=== PATIENT | female | born 1980 | race Caucasian/White ===

== ENCOUNTER 2018-04-25 14:48 | Day surgery (SDC) | payer BC ==
--- NOTE | 2018-04-25 15:43 | PDOC.LDHP ---
Labor and Delivery H&P Chief complaint: other (urinary frequency) HPI: 37 yo @ 35.6wks presents with urinary frequency and pelvic pressure for the past few days. She endorse chills off and on as well. She had several episodes of vomiting and diarrhea last week that resolved on Wednesday. Denies dysuria, flank pain, LOF, vaginal bleeding, discharge. States that she has taken tramadol in the past for round ligament pain and migraines. She has tried tylenol 1000mg q4-6 hours prn which she says doesn't help. Current gestational age (weeks): 35 (35.6) Due date: 05/24/18 Grav: 3 Para: 2 (2001) OB History Details: 05/2011 vaginal 12/2005 vaginal Current complications: none Abnormal US findings: No (male fetus) Past Medical History: none Current medications: none Previous surgical history: none Allergies/Adverse Reactions: Allergies Allergy/AdvReac Type Severity Reaction Status Date / Time No Known Allergies Allergy Verified 06/10/13 08:44 Social history: none - Physical Exam Vital signs reviewed and normal: yes General: NAD, resting Heart: RRR Lungs: CTAB Abdomen: gravid Extremeties: no edema FHT: category 1 - Vaginal Exam cm dilated: 0 - OB Labs Blood type: A RH: positive HIV: negative RPR: negative - Plan -: 37 yo @35.6wks with urinary frequency, admitted to obs for suspected UTI vs round ligament pain. 1.)sIUP 2.)suspected UTI vs round ligament pain -UA with micro -Tramadol X1 for pain -Monitor on NST - Review of Systems General: reports: fever/chills. denies: weight/appetite/sleep changes ENT: denies: nasal congestion, rhinorrhea Respiratory: denies: cough, congestion Cardiovascular: denies: chest pain, palpitation Gastrointestinal: denies: nausea, vomiting, diarrhea Genitourinary: reports: other (urinary frequency and pelvic pressure). denies: dysuria Skin: denies: rashes, lesions Musculoskeletal: reports: pain (round ligament) Neurological: denies: numbness, syncope Psychological: denies: anxiety, depression
[2018-04-25 16:30] LABS: Bilirubin Negative (Negative); Blood, Urine Negative (Negative); Clarity CLEAR (Clear); Glucose, Urine (Dipstick) Negative (Negative); Leukocyte Negative (Negative); Nitrite Negative (Negative); Protein, Urine (Dipstick) Negative (Neg-Trace); Specific Gravity, Urine 1.022 (1.002-1.036)
[2018-04-25 16:34] LABS: RBC/HPF 0-3 HPF (0-3); WBC/HPF 0-3 HPF (0-3)
[2018-04-25 16:38] LABS: Pathc Cast-AUWi Flag 4.79 (0-2.49)
[2018-04-25] MEDS ORDERED: traMADol HCl 50 MG TAB PO SCH (16:45)
[2018-04-25 16:49] LABS: Bacteria/HPF Rare-Few HPF (None Seen); Hyaline Casts/LPF NONE SEEN LPF (0-3 Hyaline); Manual Microscopic Reviewed? No Path Casts Seen
[2018-04-25 16:57] VITALS: BMI 30.8
== END 2018-04-25 17:14 | disposition home or self-care (01) ==
LOC: L&D/OP 14:48
PROVIDERS: ATTEND Obstetrics & Gynecology
DX: O99.89 Other specified diseases and conditions complicating pregnancy, childbirth and the puerperium (principal); R35.0 Frequency of micturition; Z3A.35 35 weeks gestation of pregnancy
CPT/HCPCS: 51701; 81001; 99283

== ENCOUNTER 2018-04-26 09:18 | Inpatient (IN) | payer BC ==
[2018-04-26 09:41] VITALS: BMI 29.2
--- NOTE | 2018-04-26 10:36 | PDOC.FPROB ---
FMR OB H&P: HPI - History of Present Illness Chief Complaint: suprapubic and right flank pain History of Present Illness: 37 yo at 36.0 wk by LMP/11.1 wk US. Presents with complaint of severe suprapubic pain that radiates to her right lower quadrant and right flank. States her symptoms started on 04/18 with symptoms consistent with mild gastroenteritis. State her symptoms improved over the next 2 days but she noticed a 1-2 small specks of blood in her urine on 04/20. Reports increased urgency without dysuria throughout the next 4 days. She was seen yesterday on L& D with a CC of suprapubic pressure and urgency. UA at that time was remarkable for ketones, squamous cells, and rare bacteria. She was given tramadol and d/c home and had follow up scheduled on . She states the tramadol resolved her pain. At approximately 0400 on 04/26, her pain returned and became more severe. She states she took one of her 's norco and a dose of Azo which did not resolve her pain and prompted her to come to L&D for evaluation. She denies CP, SOB, N/V, edema, RUQ pain, fevers/chills, and dysuria. Reports movement. Denies vaginal bleeding or discharge. Primary Care Physician: Dr. Watkins FMR OB H&P: Current - Care : 3 Para: 2 Gestational age: 36.0 Due date: 05/24/18 Dating Criteria: LMP c/w 11.1 wk US Course/Complications: none - OB Labs Blood type: A RH: positive Antibody Screen: negative HIV: negative RPR: negative HepBsAg: negative Rubella: immune Quad screen: negative ([id number] performed and negative) Urine drug screen: not done Gonorrhea: negative Chlamydia: negative Pap Smear: negative with negative HPV, hx of LISL in 2014 1 hour gtt: 135 GBS: unknown H&H: 11.3/33.3 on 04/04/18 Platelets: 131 on 04/04/18 - First Trimester Ultrasound First trimester: Dates = size at 11.1 wk and 13.3 wk - Anatomy Survey Anatomy survey: Male fetus, no abnormalities or funneling noted, fundal placenta, FMR OB H&P: History - Past Medical History PMH: LSIL in 2015 resolved on most recent Pap this - OB History OB History: PPH with second that did not require transfusion - 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: LSIL- resolved - Surgical History Sx History: None - Social History Social History: Noncontributory - Family History Family History: Denies FHx kidney stones FMR OB H&P: Medications - Current Home Medications: Medication Instructions Recorded Confirmed Type Vit No.129/Iron/Folic 1 tab PO DAILY 04/26/18 04/26/18 History [ One Daily Tablet] Allergies/Adverse Reactions: Allergies Allergy/AdvReac Type Severity Reaction Status Date / Time ondansetron [From Zofran] Allergy Severe Swollen Verified 04/26/18 11:45 Lips FMR OB H&P: ROS - Review of Systems General: denies: fever/chills, weight/appetite/sleep changes Eyes: denies: eye pain, vision changes, scotomas ENT: denies: nasal congestion, rhinorrhea Cardiovascular: denies: chest pain, palpitation Respiratory: denies: cough, congestion, shortness of breath Gastrointestinal: reports: abdominal pain, cramping. denies: nausea, vomiting, diarrhea, constipation, bright red blood Genitourinary (Female): reports: hesitancy, other (increased frequency). denies : incontinence, dysuria, vaginal discharge, contractions Musculoskeletal: denies: pain, tenderness Neurologic: denies: numbness, syncope, seizures Integumentary: denies: itching, lesions FMR OB H&P: Vital Signs - Maternal Vital signs: Vital Signs (12 hours) Temp Pulse Resp BP 04/26/18 09:38 98.2 F 100 18 133/76 Weight Weight 84.822 kg - Heart Tones Baseline: 140 Variability: moderate Acceleration: present Deceleration: absent [place] contractions every: none FMR OB H&P: Physical Exam - Physical Exam General: awake, alert and oriented, other (appears in pain) HEENT: normocephalic and atraumatic, no scleral icterus Heart: RRR, normal S1/S2, no murmurs/rubs/gallops General: CTAB, no respiratory distress Abdomen: soft, gravid, bowel sound present, no masses Deviation from normal: TTP suprapubic region, right sided CVA tenderness Musculoskeletal: normal gait and station, FROM in all four extremities Neurological: cranial nerves II through XII intact, sensation to pain,touch and proprioception grossly normal Skin: no rash, good tugor - Pelvic Exam SVE: deferred FMR OB H&P: Results - Labs Lab results: Laboratory Results - last 24 hr 04/26/18 04/26/18 04/26/18 10:32 10:32 10:55 WBC 12.7 H RBC 3.69 L Hgb 12.0 Hct 34.5 L MCV 93.5 MCH 32.4 H MCHC 34.6 RDW 12.1 Plt Count 115 L MPV 9.3 Neutrophils % 76.4 H Lymphocytes % 15.0 L Monocytes % 7.7 Eosinophils % 0.6 Basophils % 0.3 Neutrophils # 9.7 H Lymphocytes # 1.9 Monocytes # 1.0 H Eosinophils # 0.1 Basophils # 0.0 Plt Morphology Comment Appears Decreased L RBC Morph Comment Normal Sodium 135 L Potassium 3.4 L Chloride 106 Carbon Dioxide 19 L Anion Gap 13 BUN 6 L Creatinine 0.64 Estimated GFR (MDRD) Greater than 90 Glucose 94 Calcium 8.5 Total Bilirubin 0.4 AST 25 ALT 29 Alkaline Phosphatase 124 Serum Total Protein 6.2 Albumin 3.3 L Globulin 2.9 Albumin/Globulin Ratio 1.1 L Urine Color Dark Yellow Urine Clarity CLEAR Urine pH 6.5 Ur Specific [place] 1.017 Urine Protein 100 H Urine Glucose (UA) Negative Urine Ketones Trace H Urine Blood Trace H Urine Nitrite Positive H Urine Bilirubin Negative Urine Urobilinogen 1.0 Ur Leukocyte Esterase Small H Urine RBC 7-10 H Urine WBC 0-3 Ur Squamous Epith Cells 4-6 H Urine Bacteria 1+ H Hyaline Casts 4-6 HYALINE CAST H - Imaging Imaging: Renal US: Moderate to severe hydronephrosis with surrounding perinephric fluid of unknown etiology. FMR OB H&P: A/P - Problem List (1) Nephrolithiasis Current Visit: Yes Status: Acute Assessment and Plan: Differential includes nephrolithiasis, hydronephrosis from uterine compression, pyelonephritis, musculoskeletal pains CBC and CMP unremarkable. UA positive for nitrates, LE, and RBC 7-10/hpf with squamous cells present. US shows right sided moderate to severe hydronephrosis - IM Morphine for pain management - Repeat UA collected via straight cath to evaluate if RBCs, nitrates, and LE resolves. (2) Hydronephrosis Current Visit: Yes Status: Acute Code(s): N13.30 - UNSPECIFIED HYDRONEPHROSIS Qualifiers: Hydronephrosis type: unspecified Qualified Code(s): N13.30 - Unspecified hydronephrosis Assessment and Plan: Right sided, see plan for nephrolithiasis (3) Current Visit: Yes Status: Acute Qualifiers: Weeks of gestation: 36 weeks Qualified Code(s): Z3A.36 - 36 weeks gestation of Assessment and Plan: appears stable. continue PNV. Will discuss giving steroids with PCP if pain unable to be controlled and need for delivery in the next 2-3 days. (4) Thrombocytopenia affecting Current Visit: Yes Status: Acute Code(s): O99.119 - OTH DIS OF BLD/BLD-FORM ORG/IMMUN MECHNSM COMP PREG,UNSP TRI; D69.6 - THROMBOCYTOPENIA, UNSPECIFIED Assessment and Plan: platelets down to 115 today. Disposition: Dispo pending repeat UA. Discussion: Date/Time: 04/26/18 1027 This H&P was discussed with Dr. Avalos who agree with the above documentation and plan. Pt is a [address] Watkins presenting with severe rt sided flank and side pain moderately controlled with 12mg morphine, 100mcg fentanyl. 15mg hydrcodone PO. sve 10/19/3 moderately soft. Working dx is kidney stone and is receive generous hydration, iv meds transitioning to po for pain control, 1gm rocephin and betamethasone for lung maturity in the event delivery is needed. Some of pt symptoms consistent with uti, cath ua sig only for rbc and nitrites-no bacteria seen. However given the whole picture I have treated with rocephin. I have discussed pt with Dr Watkins. Will focus on pain control. No evidence suggesting any emergent problems. Will admit to observation for pain control and serial exams. Will consult urology if unable to get satisfactory pain control.
[2018-04-26] MEDS ORDERED: Morphine 4 MG/ML VIAL IM SCH (10:45)
[2018-04-26] MEDS ORDERED: Morphine 4 MG/ML VIAL SLOW IVP SCH (10:45)
[2018-04-26 11:05] LABS: #Eosinphils 0.1 thou/uL (0.0-0.7); #Lymphocytes 1.9 thou/uL (1.20-3.40); #Neutrophils 9.7 thou/uL (1.40-6.50); %Basophils 0.3 % (0.0-1.0); %Eosinophils 0.6 % (0.0-10.0); %Monocytes 7.7 % (0.0-10.0); %Neutrophils 76.4 % (42.0-75.0); Mean Corpuscular HGB CONC 34.6 g/dL (32.0-36.0); Mean Corpuscular Hemoglobin 32.4 pg (27.0-31.0); Mean Corpuscular Volume 93.5 fL (78.0-98.0); Mean Platelet Volume 9.3 fL (7.4-10.4); PLT Morphology Comment Appears Decreased; Platelet Count 115 thou/uL (130-400); RBC Distribution Width 12.1 % (11.5-14.5); RBC Morphology Normal; Red Blood Cell (RBC) Count 3.69 mill/uL (4.20-5.40); White Blood Cell (WBC) Count 12.7 thou/uL (4.8-10.8)
[2018-04-26 11:07] LABS: Bilirubin Negative (Negative); Blood, Urine Trace (Negative); Clarity CLEAR (Clear); Glucose, Urine (Dipstick) Negative (Negative); Leukocyte Small (Negative); Nitrite Positive (Negative); Protein, Urine (Dipstick) 100 mg/dL (Neg-Trace); Specific Gravity, Urine 1.017 (1.002-1.036); pH, Urine 6.5 (5.0-9.0)
[2018-04-26 11:09] LABS: Bacteria/HPF 1+ HPF (None Seen); Hyaline Casts/LPF 4-6 HYALINE CAST LPF (0-3 Hyaline); Pathc Cast-AUWi Flag 1.74 (0-2.49); WBC/HPF 0-3 HPF (0-3)
[2018-04-26] MEDS ORDERED: Morphine 4 MG/ML VIAL SLOW IVP ONE (11:14)
[2018-04-26] MEDS: Lactated Ringer's 1,000 ML IV SCH ×4 (11:25→19:30)
[2018-04-26] MEDS ORDERED: Ondansetron HCl/PF 4 MG/2 ML Vial IVP SCH (11:30)
[2018-04-26 11:36] LABS: ALT (SGPT) 29 U/L (8-55); AST (SGOT) 25 U/L (5-34); Albumin 3.3 g/dL (3.5-5.0); Alkaline Phosphatase 124 U/L (40-150); Anion Gap 13 mmol/L (10-20); BUN (Urea Nitrogen) 6 mg/dL (7.0-18.7); Bilirubin, Total 0.4 mg/dL (0.2-1.2); Calc. Creatinine Clearance 164 mL/min (70-130); Calcium 8.5 mg/dL (7.8-10.44); Carbon Dioxide 19 mmol/L (22-29); Chloride 106 mmol/L (98-107); Estimated GFR-MDRD Greater than 90; Globulin 2.9 g/dL (2.4-3.5); Glucose 94 mg/dL (70-105); Potassium 3.4 mmol/L (3.5-5.1); Protein, Total 6.2 g/dL (6.0-8.3); Sodium 135 mmol/L (136-145)
[2018-04-26] MEDS ORDERED: Promethazine HCl 25 MG/ML VIAL IM/IV SCH (11:45)
--- NOTE | 2018-04-26 11:59 | ULT ---
BILATERAL RENAL ULTRASOUND: CLINICAL HISTORY: Abdominal pain. FINDINGS: There is moderate to severe right side hydronephrosis with perinephric fluid. There is no hydronephro sis of the left kidney. Urinary bladder not visualized as the patient voided prior to imaging. IMPRESSION: Moderate to severe right hydronephrosis of indeterminate etiology. LIMITED ABDOMINAL ULTRASOUND: CLINICAL HISTORY: Abdominal pain. FINDINGS: Limited lower abdominal sonographic imaging at the right lower quadrant to evaluate region of appendi x was performed. A discrete appendix is not visualized. No ascites in right lower quadrant. IMPRESSION: Appendix is not visualized for comment. Appendicitis is therefore not excluded on the basis of this e xam. There is no ascites in right lower quadrant. POS: JOURDAN
[2018-04-26 12:01] LABS: ALT (SGPT) 31 U/L (8-55); AST (SGOT) 26 U/L (5-34); Albumin 3.4 g/dL (3.5-5.0); Alkaline Phosphatase 126 U/L (40-150); Anion Gap 14 mmol/L (10-20); BUN (Urea Nitrogen) 7 mg/dL (7.0-18.7); Bilirubin, Total 0.4 mg/dL (0.2-1.2); Calc. Creatinine Clearance 167 mL/min (70-130); Calcium 8.4 mg/dL (7.8-10.44); Carbon Dioxide 18 mmol/L (22-29); Chloride 108 mmol/L (98-107); Estimated GFR-MDRD Greater than 90; Globulin 2.5 g/dL (2.4-3.5); Glucose 96 mg/dL (70-105); Potassium 3.7 mmol/L (3.5-5.1); Protein, Total 5.9 g/dL (6.0-8.3); Sodium 136 mmol/L (136-145)
[2018-04-26] MEDS ORDERED: Fentanyl 100 MCG/2 ML VIAL SLOW IVP SCH (12:15)
[2018-04-26 12:36] LABS: Bilirubin Negative (Negative); Blood, Urine Trace (Negative); Clarity CLEAR (Clear); Glucose, Urine (Dipstick) Negative (Negative); Leukocyte Trace (Negative); Nitrite Positive (Negative); Protein, Urine (Dipstick) 30 mg/dL (Neg-Trace); Specific Gravity, Urine 1.018 (1.002-1.036); pH, Urine 6.5 (5.0-9.0)
[2018-04-26 12:39] LABS: Bacteria/HPF None Seen HPF (None Seen); Hyaline Casts/LPF 0-3 HYALINE CAST LPF (0-3 Hyaline); Pathc Cast-AUWi Flag 0.87 (0-2.49); Squamous Epithelial 0-3 HPF (0-3); WBC/HPF 0-3 HPF (0-3)
[2018-04-26] MEDS ORDERED: HYDROcodone/Acetaminophen 7.5/325 mg Tablet PO PRN (12:51)
[2018-04-26] MEDS ORDERED: Lactated Ringer's 1,000 ML IV SCH (13:00)
[2018-04-26] MEDS: cefTRIAXone\\ROCEPHIN 1 GM VIAL IM SCH (14:00)
[2018-04-26] MEDS ORDERED: Betamet Acet/Betamet Na Ph 30 MG/5 ML VIAL ONE (14:20)
[2018-04-26] MEDS: Betamet Acet/Betamet Na Ph 30 MG/5 ML VIAL IM SCH (14:25)
[2018-04-26] MEDS: HYDROcodone/Acetaminophen 7.5/325 mg Tablet PO PRN ×3 (17:22→22:59)
[2018-04-26] MEDS ORDERED: HYDROcodone/Acetaminophen 10/325 mg Tablet PO SCH (23:45)
--- NOTE | 2018-04-27 07:46 | PDOC.LDPN ---
Labor & Delivery Progress Note - Subjective Subjective: other (Pain at about 20% from most severe yesterday. Got some rest. Baby is moving.) - Objective Vital signs reviewed and normal: yes General: NAD Uterine fundus: non tender FHT: category 1 [place] contractions every: no [id number] - Assessment (1) Hydronephrosis Code(s): N13.30 - UNSPECIFIED HYDRONEPHROSIS Current Visit: Yes Status: Acute Qualifiers: Hydronephrosis type: unspecified Qualified Code(s): N13.30 - Unspecified hydronephrosis Plan: other (Pain management. IVF's. Repeat right renal ultrasound today for comparison. steroid dose number 2 this afternoon in case delivery indicated...)
[2018-04-27] MEDS: HYDROcodone/Acetaminophen 5/325 mg Tablet PO PRN ×4 (07:54→18:48)
--- NOTE | 2018-04-27 08:54 | ULT ---
BILATERAL RENAL ULTRASOUND: Date: 04/27/18 INDICATION: Right flank pain. FINDINGS: There is moderate to severe right hydronephrosis. The left kidney appears unremarkable. The bladder is contracted and not evaluated. IMPRESSION: Moderate to severe right hydronephrosis. Etiology is not apparent on this exam. POS: JOURDAN
[2018-04-27] MEDS ORDERED: Tamsulosin HCl 0.4 MG CAP PO SCH (09:00)
[2018-04-27] MEDS: Lactated Ringer's 1,000 ML IV SCH (09:49)
[2018-04-27] MEDS ORDERED: Mag-Al 1200 mg/1200 mg/30 ML UDCUP PO PRN ×2 (13:01→20:10)
[2018-04-27] MEDS: Sodium Chloride 0.9% 1,000 ML IV SCH ×2 (15:15→23:05)
[2018-04-27] MEDS: cefTRIAXone\\ROCEPHIN 1 GM VIAL IM SCH (15:23)
[2018-04-27] MEDS: Betamet Acet/Betamet Na Ph 30 MG/5 ML VIAL IM SCH (15:28)
--- NOTE | 2018-04-27 18:37 | CON ---
DATE OF CONSULTATION: 04/27/2018 HISTORY OF PRESENT ILLNESS: This is a 37-year-old white female who is well into her last trimester o f with her third child. She came in, I believe yesterday with right lower quadrant pain an d right flank pain and microscopic hematuria. She has no prior history of stones. Her pain is actua lly improved, though she did require parental narcotics yesterday and some oral narcotics today. She has not had any fever or chills. Her urinalysis did show some nitrite positivity. White count was not significantly elevated. She has had nothing to suggest an infection. She has had increasing uri nary frequency and urgency, but no dysuria. She had some nausea and vomiting earlier in the week, bu t it was not associated with pain. She has not had nausea or vomiting since she has been here. She had no prior history of stones that she knows of. Ultrasound has been done twice and it shows right hydronephrosis and fairly prominent. No obvious stone, but probably the stone is distal. She had ur ine cultures done and did receive some Rocephin. She is currently as mentioned feeling better. PAST SURGICAL HISTORY: Negative. MEDICAL HISTORY: Negative. ALLERGIES: She may have an allergy to ZOFRAN. MEDICATIONS: She does not take any normal prescription medications. I have reviewed her ultrasound and talked to her where she is feeling better at this time, I do not t hink that she should have any intervention in terms of a stent or nephrostomy tube should she develop signs or symptoms of infection, pain that she cannot control or persistent nausea and vomiting or sh ould there anything developed in terms of labor, then a nephrostomy tube or stent could be do ne. I think at this point in her may be easier just to have a nephrostomy tube placed if r adiology could do that. It would not require a general anesthetic and would not be anywhere near the gravid uterus; however, this could not be done easily by Radiology. I think we still could with ult rasound guidance pass ureteral stent from below if it is necessary. I think that this is unlikely to be necessary. I talked with her and her about this indicating how most commonly stones will pass and that most likely she does have a stone. The fact that she initially presented with a lot o f frequency and urgency and voiding just small amounts and where it looks like she probably does not have an infection as a cause of this that it may be that it is a distal stone just irritating the int ramural ureter and that is a common finding to curb further stones' pass. I will follow along with flako thurman over the next day or two while she is here and intervene only if her condition changes.
[2018-04-27 19:45] VITALS: TEMP 98.5
[2018-04-27] MEDS ORDERED: Sodium Chloride 0.9% 1,000 ML IV SCH (20:10)
[2018-04-27] MEDS ORDERED: HYDROcodone/Acetaminophen 5/325 mg Tablet PO PRN (20:10)
[2018-04-27] MEDS ORDERED: Lactated Ringer's 1,000 ML IV SCH (20:10)
[2018-04-27] MEDS ORDERED: Famotidine 20 MG TAB PO SCH (21:00)
[2018-04-27] MEDS: Famotidine 20 MG TAB PO SCH (21:20)
[2018-04-28] MEDS: HYDROcodone/Acetaminophen 5/325 mg Tablet PO PRN ×3 (04:15→13:18)
[2018-04-28] MEDS: Sodium Chloride 0.9% 1,000 ML IV SCH (07:03)
--- NOTE | 2018-04-28 07:57 | PDOC.EVN ---
Event Note - Event Note Event Note: Reports passing a stone last night. She accidentally thre it away but took a picture of it and appears to be about 3-4 mm in size. Started having some right sided intermittent sharp pain again around 0430. Not as severe as before. Fetus is active. No contractions. No nausea or vomiting. O; afebrile. VSS. NSt reactive. A/P 36-37 weeks Passage of kidney stone and right sided renal colic/hydronephrosis. Still having some colic symptoms that could either be from ureteral irritation or another stone or gravel that remains. She is afebrile and no s/sof labor or n/ v.... observe this AM. If improves-discharge home with oral norco and flomax 4 mg/d for a week. Has received steroids if earlier induction indicated.
[2018-04-28] MEDS ORDERED: Tamsulosin HCl 0.4 MG CAP PO SCH (09:00)
[2018-04-28] MEDS: Famotidine 20 MG TAB PO SCH (09:01)
[2018-04-28 12:40] VITALS: BP 130/68
[2018-04-28] MEDS ORDERED: cefTRIAXone\\ROCEPHIN 1 GM VIAL IM SCH (13:00)
--- NOTE | 2018-04-28 20:02 | DIS ---
DATE OF ADMISSION: 04/26/2018 DATE OF DISCHARGE: 04/28/2018 DIAGNOSES: 1. Right renal colic. 2. Nephrolithiasis. 3. Abdominal pelvic pain. 4. 36 to 37 weeks gestation. SUMMARY OF HOSPITAL COURSE: Ms. Quarles is a 37-year-old white female is at 36-37 weeks who h ad onset of severe right flank pain and renal colic symptoms, which she presented to [facility] for this on 04/26/2018. She was evaluated by Dr. 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 She required a significant amount of IV narcotics to control her pain and her findings were consist ent with a right-sided kidney stone. She underwent a renal ultrasound showing moderate to severe hyd ronephrosis on 04/26/2018 with some perinephric fluid collection. Her pain came under control with a regimen of IV Demerol and p.o. Astatula and was able to actually get some sleep during the early morni ng of 04/27/2018. She continued IV fluids and pain management and was initiated on IV Rocephin for c overage and Urology consult with Dr. Marin was obtained the afternoon of 04/27/2018. The patient woodruff d considerably improved and was felt to conservatively manage her with pain meds and continued IV flu id hydration in-house observation. The fetus remained reactive with a nonstress testing overall was category 1 and favorable. The patient remained afebrile. She had no significant nausea or vomiting or evidence of labor or unrelenting pain. She did receive a course of betamethasone and ante helena steroids in case she would be required delivery early due to the current kidney stone i ssues. The patient did spontaneously pass a stone early in the morning of 04/28/2018 approximately 3-4 mm ca lculus was noted. She did unfortunately throw the stone away and we do not have it for stone analysi s. She did have some continued ureteral irritation symptoms that required some oral narcotics, but i n general, she is much improved from her admission status. She remains afebrile, stable vital signs. Fetus' NST is reactive and reassuring. She will be discharged home on nitrofurantoin 100 mg at bed time, Astatula 7.5 mg one p.o. q.4-6 hours p.r.n. pain. She was also given another 5 days of the Flomax 0.4 mg daily. She was given instructions to return immediately if she has onset of severe renal col ic. Otherwise, continue at least a gallon of water daily to flush her kidneys and she has to follow up with me in 1 week. We plan to get a CT scan stone protocol after delivery to see they make sure s he does not have any further stone disease in her kidneys.
== END 2018-04-28 14:35 | disposition home health service (06) | DRG 781 ==
LOC: L&D/OP 09:18 → L&D 18:20 → OBSVTOIN 18:20 → UNDODISOB 04-27 20:10
PROVIDERS: ADMIT Obstetrics & Gynecology; ATTEND Obstetrics & Gynecology
DX: O99.89 Other specified diseases and conditions complicating pregnancy, childbirth and the puerperium (principal); N13.2 Hydronephrosis with renal and ureteral calculous obstruction; Z3A.37 37 weeks gestation of pregnancy
CPT/HCPCS: 36415; 51701; 76705; 76770; 80053; 81001; 85025; 99285; A4353; J0696; J0702; J2175

== ENCOUNTER 2018-05-09 12:19 | Inpatient (IN) | payer BC ==
[~2018-05-09 12:19] MED LIST: Bupivacaine 0.25% HCL 30 ML VIAL ONE
[2018-05-09 12:57] VITALS: BMI 32.1
[2018-05-09] MEDS: Lactated Ringer's 1,000 ML IV SCH ×2 (13:16→20:34)
[2018-05-09] MEDS ORDERED: Meperidine HCl/PF 25 MG/ML VIAL ONE (13:21)
[2018-05-09] MEDS ORDERED: Zolpidem Tartrate 5 MG TAB PO PRN (13:41)
[2018-05-09] MEDS ORDERED: Lactated Ringer's 1,000 ML IV SCH (13:41)
[2018-05-09] MEDS ORDERED: HYDROcodone/Acetaminophen 5/325 mg Tablet PO PRN ×2 (13:41)
[2018-05-09] MEDS ORDERED: Meperidine HCl/PF 25 MG/ML VIAL IM/IV PRN (13:41)
[2018-05-09] MEDS ORDERED: Lidocaine 1% (PF) 30 ML VIAL SC PRN ×2 (13:41→13:45)
[2018-05-09] MEDS ORDERED: NS / Oxytocin 40 units/1000ml 1,000 ML IV PRN ×2 (13:41→13:45)
[2018-05-09] MEDS ORDERED: Butorphanol Tartrate 1 MG/ML VIAL SLOW IVP PRN (13:45)
[2018-05-09 13:56] LABS: Hemoglobin 12.6 g/dL (12.0-16.0); Mean Corpuscular HGB CONC 34.5 g/dL (32.0-36.0); Mean Corpuscular Hemoglobin 31.7 pg (27.0-31.0); Mean Corpuscular Volume 91.9 fL (78.0-98.0); Mean Platelet Volume 9.7 fL (7.4-10.4); Platelet Count 153 thou/uL (130-400); RBC Distribution Width 12.6 % (11.5-14.5); Red Blood Cell (RBC) Count 3.97 mill/uL (4.20-5.40); White Blood Cell (WBC) Count 11.3 thou/uL (4.8-10.8)
[2018-05-09 14:36] LABS: HBSAg Index 0.17 S/CO (0-0.99); Hep B Surf Ag Non-Reactive S/CO (NonReactive); Syphilis Antibody Nonreactive (Nonreactive); Syphilis Antibody Index 0.05 S/CO (<1.00 Non-Reactive)
[2018-05-09 14:40] LABS: ALT (SGPT) 26 U/L (8-55); AST (SGOT) 19 U/L (5-34); Albumin 3.6 g/dL (3.5-5.0); Alkaline Phosphatase 172 U/L (40-150); Anion Gap 12 mmol/L (10-20); BUN (Urea Nitrogen) 6 mg/dL (7.0-18.7); Bilirubin, Total 0.4 mg/dL (0.2-1.2); Calc. Creatinine Clearance 210 mL/min (70-130); Calcium 9.1 mg/dL (7.8-10.44); Carbon Dioxide 20 mmol/L (22-29); Chloride 109 mmol/L (98-107); Clarity CLEAR (Clear); Estimated GFR-MDRD Greater than 90; Globulin 2.9 g/dL (2.4-3.5); Glucose 81 mg/dL (70-105); Leukocyte Negative (Negative); Nitrite Negative (Negative); Potassium 3.8 mmol/L (3.5-5.1); Protein, Total 6.5 g/dL (6.0-8.3); Protein, Urine (Dipstick) Negative (Neg-Trace); Sodium 137 mmol/L (136-145); Specific Gravity, Urine 1.011 (1.002-1.036)
[2018-05-09 14:41] LABS: Bacteria/HPF None Seen HPF (None Seen); Bilirubin Negative (Negative); Blood, Urine Negative (Negative); Glucose, Urine (Dipstick) Negative (Negative); Hyaline Casts/LPF 4-6 HYALINE CAST LPF (0-3 Hyaline); RBC/HPF None Seen HPF (0-3); Squamous Epithelial None Seen HPF (0-3); WBC/HPF None Seen HPF (0-3)
[2018-05-09] MEDS ORDERED: DISCONTINUE ALL PREVIOUS NARCOTICS FS SCH (15:00)
--- NOTE | 2018-05-09 15:23 | ULT ---
BILATERAL RENAL ULTRASOUND: Date: 05/09/18 COMPARISON: 04/27/18. HISTORY: Nephrolithiasis. Right-sided symptoms. TECHNIQUE: Sagittal and transverse imaging of the kidneys is performed. FINDINGS: Left Kidney: Normal cortical echotexture. No hydronephrosis. Left kidney measures 11.4 x 6.1 x 5.7 cm. Right Kidney: There is moderate to severe hydronephrosis. The degree of dilatation has minimally decreased when com pared to the previous examination. Right kidney measures 13.8 x 6.5 x 6.5 cm. Patient recently voided and therefore the bladder could not be assessed. IMPRESSION: Moderate to severe right-sided hydronephrosis that has minimally decreased when compared to the previ ous examination. POS: JOURDAN
[2018-05-09] MEDS: Bupivacaine 0.5% 20 ML, fentaNYL Citrate/PF 400 MCG in Sodium Chloride 0.9% 72 ML EPIDURAL SCH (18:00)
[2018-05-09] MEDS: NS w/ Oxytocin 10 units 500 ML IV SCH (19:03)
[2018-05-09] MEDS: Promethazine HCl 25 MG/ML VIAL IM PRN (20:34)
--- NOTE | 2018-05-09 22:26 | PDOC.LDPN ---
Labor & Delivery Progress Note - Subjective Subjective: comfortable - Objective Vital signs reviewed and normal: yes General: NAD Uterine fundus: non tender Dilation: 3 Effacement: 50% Station: -1 FHT: category 1 AROM: clear fluid Plan: continue plan of care
[2018-05-10] MEDS: Bupivacaine 0.5% 20 ML, fentaNYL Citrate/PF 400 MCG in Sodium Chloride 0.9% 72 ML EPIDURAL SCH ×4 (01:12→15:09)
[2018-05-10] MEDS: Lactated Ringer's 1,000 ML IV SCH ×2 (02:35→11:31)
[2018-05-10] MEDS: Promethazine HCl 25 MG/ML VIAL IM PRN ×2 (12:10→19:31)
[2018-05-10] MEDS: NS w/ Oxytocin 10 units 500 ML IV SCH (14:26)
[2018-05-10] MEDS ORDERED: Methylergonovine 0.2 MG/ML VIAL ONE ×2 (18:23→19:25)
[2018-05-10] MEDS ORDERED: Carboprost 250 MCG/ML AMP IM ONE (19:00)
[2018-05-10] MEDS ORDERED: Carboprost 250 MCG/ML AMP ONE (19:03)
[2018-05-10] MEDS ORDERED: Misoprostol 100 MCG TAB ONE (19:06)
[2018-05-10] MEDS ORDERED: Misoprostol 200 MCG TAB ONE (19:07)
--- NOTE | 2018-05-10 19:37 | PDOC.EVN ---
Event Note - Event Note Event Note: Called to stand by. Rapid progress with pushes x 4 with . Viable male delivered over intact perineum with nuchal coed x 1 cut on perineum. Placenta intact Wilson. Atony ensued and treated with sequential Methergine .2 IM , Hemabate 250 mcg and Cytotec [address] Kang notified. Has now arrived and present to evaluate. TXA given and 1 unit PRBC transfudsing now.
[2018-05-10] MEDS ORDERED: Bisacodyl 10 MG SUPP PR PRN (20:06)
[2018-05-10] MEDS ORDERED: traMADol HCl 50 MG TAB PO PRN (20:06)
[2018-05-10] MEDS ORDERED: Adacel (T-DAP) 0.5 ML VIAL IM ONE (20:06)
[2018-05-10] MEDS ORDERED: Benzocaine/Menthol 20-0.5% 60 ML CAN TOP PRN (20:06)
[2018-05-10] MEDS ORDERED: Milk Of Magnesia 30 ML UDCUP PO PRN (20:06)
[2018-05-10] MEDS ORDERED: Lanolin Ointment 7 GM TUBE TOP PRN (20:06)
[2018-05-10] MEDS ORDERED: Acetaminophen 1,000 MG in Premix Bag 1 BAG IVPB PRN (20:13)
[2018-05-10] MEDS ORDERED: NS / Oxytocin 40 units/1000ml 1,000 ML IV SCH (20:15)
[2018-05-10] MEDS ORDERED: Tranexamic Acid 1,000 MG in Sodium Chloride 0.9% 250 ML 250 ML IVPB SCH ×2 (20:15→22:00)
[2018-05-10] MEDS ORDERED: Methylergonovine 0.2 MG/ML VIAL IM SCH (20:30)
[2018-05-10] MEDS ORDERED: Misoprostol 100 MCG TAB FS SCH (20:30)
[2018-05-10] MEDS ORDERED: CEFAZOLIN/Water 2 GM/20 ML SYRINGE SLOW IVP SCH (21:00)
[2018-05-10] MEDS ORDERED: CEFAZOLIN 2 GM in Sodium Chloride 0.9% 100 ML IVPB ONE (21:00)
[2018-05-10] MEDS: Docusate Calcium (SURFAK) 240 MG CAP PO SCH (22:14)
[2018-05-10] MEDS: Ibuprofen 800 MG TAB PO SCH (22:15)
[2018-05-11] MEDS ORDERED: Calcium Carbonate 500 MG ChewTAB PO PRN (02:08)
[2018-05-11 05:08] LABS: Hemoglobin 11.2 g/dL (12.0-16.0); Mean Corpuscular HGB CONC 33.2 g/dL (32.0-36.0); Mean Corpuscular Hemoglobin 30.6 pg (27.0-31.0); Mean Corpuscular Volume 92.4 fL (78.0-98.0); Mean Platelet Volume 9.6 fL (7.4-10.4); Platelet Count 108 thou/uL (130-400); RBC Distribution Width 12.4 % (11.5-14.5); Red Blood Cell (RBC) Count 3.66 mill/uL (4.20-5.40); White Blood Cell (WBC) Count 19.4 thou/uL (4.8-10.8)
[2018-05-11] MEDS: Lactated Ringer's 1,000 ML IV SCH ×2 (07:09→08:45)
[2018-05-11] MEDS: Ibuprofen 800 MG TAB PO SCH ×3 (07:24→21:00)
--- NOTE | 2018-05-11 07:56 | PDOC.EVN ---
Event Note - Event Note Event Note: patient has been observed overnight in L&D for PPH secondary to uterine atony. Received 2 units of PRBC's - TXA protocol. Vital signs have remained stable and afebrile. Patient only reports soreness in lower abdomen from uterine massage. No current renal colic symptoms. 0600 h/h 11.2/33.8 abdomen is soft/fundus is furm. scant perineal blood. A/P Doing well after for renal colic recurrence with pph secondary to uterine atony of 2233ml. Received 2 units transfusion. Vitals stable . resting pulse 70's and no further bleeding recurrence. Transfer to floor. Post care. CT scan of abdomen and pelvis per stone protocol.
[2018-05-11] MEDS ORDERED: Bisacodyl 10 MG SUPP PR PRN (07:57)
[2018-05-11] MEDS ORDERED: Adacel (T-DAP) 0.5 ML VIAL IM ONE (07:57)
[2018-05-11] MEDS ORDERED: Preparation H Ointment 28 GM TUBE PR PRN (07:57)
[2018-05-11] MEDS ORDERED: traMADol HCl 50 MG TAB PO PRN (07:57)
[2018-05-11] MEDS ORDERED: Lanolin Ointment 7 GM TUBE TOP PRN (07:57)
[2018-05-11] MEDS ORDERED: Milk Of Magnesia 30 ML UDCUP PO PRN (07:57)
[2018-05-11] MEDS ORDERED: Ferrous Sulfate 325 MG TAB PO SCH (08:00)
[2018-05-11] MEDS: traMADol HCl 50 MG TAB PO PRN ×3 (08:53→21:00)
[2018-05-11] MEDS: Docusate Calcium (SURFAK) 240 MG CAP PO SCH ×2 (08:53→11:08)
[2018-05-11] MEDS: Ferrous Sulfate 325 MG TAB PO SCH ×2 (08:54→17:07)
[2018-05-11] MEDS ORDERED: Prenatal Vitamin 1 TAB PO SCH (09:00)
--- NOTE | 2018-05-11 11:00 | CT ---
NONCONTRAST CT ABDOMEN AND PELVIS: Date: 05-11-18 History: Right flank pain with hematuria. History of kidney stones. Kidney stone passage/right flank pain. Patient is recently post-. Comparison: None available. FINDINGS: There is a nonobstructing inferior pole right renal calculus which measures approximately 6 mm. No ad ditional renal calculus is seen. The ureters are not well visualized bilaterally, but no calcificatio n is seen along the expected course of either ureter to suggest a ureteral calculus. There is mild ri ght hydronephrosis which may be related to distended uterus. The degree of hydronephrosis does appear improved compared to the ultrasound examination obtained on 05-09-18. The uterus is enlarged, likely related to recent post- state. There is heterogeneity as well as increased density seen within the region of the endometrial canal with associated gas. The findings are likely attributable to recent post- state of the uterus. Endometritis cannot be excluded ba sed on this exam. Hepatic granulomata are present in the left hepatic lobe. There is bibasilar atelectasis with very tiny pleural effusions bilaterally. The spleen, pancreas, and bilateral adrenal glands demonstrate a grossly normal nonenhanced CT appear ance. The urinary bladder is partially distended. There is gas present in the urinary bladder which c ould be related recent catheterization. Clinical correlation is recommended. Small amount of free fluid is seen in the pelvis. The appendix is partially visualized and where seen does contain gas. There is a small fat containing umbilical hernia. Small bowel loops are normal in caliber. IMPRESSION: 1. Nonobstructing right renal calculus. Mild right hydronephrosis is present. This may be related to the enlarged uterus. While prior CT examination is not available for comparison, ultrasound exam obta ined on 05-09-18 demonstrated moderate right sided hydronephrosis. Right sided hydronephrosis does goyo ear improved when compared to that prior examination given differences in technique of imaging. No le ft hydronephrosis is present, and no calculus is seen along the expected course of either ureter. 2. Very tiny bilateral pleural effusions with bibasilar atelectasis. 3. Post- uterus. There is increased density material and gas in the endometrial canal, probably related to recent post- state with increased density likely related to small amount of hemorrh age. Endometritis cannot be excluded based on CT imaging. 4. Small amount of free fluid in the pelvis. 5. Small amount of gas within the urinary bladder. POS: JOURDAN
[2018-05-11] MEDS: Prenatal Vitamin 1 TAB PO SCH (12:00)
[2018-05-12] MEDS: Docusate Calcium (SURFAK) 240 MG CAP PO SCH ×2 (02:32→09:26)
[2018-05-12] MEDS: traMADol HCl 50 MG TAB PO PRN ×3 (04:20→16:28)
[2018-05-12] MEDS ORDERED: Sodium Chloride 0.9% 10 ML ONE (05:22)
[2018-05-12] MEDS: Ibuprofen 800 MG TAB PO SCH ×2 (05:24→14:33)
[2018-05-12 08:01] VITALS: BP 118/58; TEMP 98.2
--- NOTE | 2018-05-12 08:12 | PDOC.EVN ---
Event Note - Event Note Event Note: Feeling better. Has some soreness in abdomen and lower back from delivery. No renal colic symptoms. O:Afebrile VSS Abdomen is soft. Fundus firm. No CVAT. CT SCAN with stone protocol shows 6 mm non obstructing right real calculus in inferior pole of kidney.. Mild right hydronephrosis-much improved. A/P:PPD #2. PPH-resolved. No anemia symptoms Right renal calculus-Discussed with Dr Marin from urology service. Will follow up as out patient in 4-6 weeks. To continue nitrofurantoin 100 mg at hs suppression. Hydration. ER warnings for renal colic. May need lithotripsy in the future.
[2018-05-12] MEDS: Ferrous Sulfate 325 MG TAB PO SCH ×2 (08:57→17:36)
[2018-05-12] MEDS: Prenatal Vitamin 1 TAB PO SCH (10:28)
== END 2018-05-12 18:25 | disposition home or self-care (01) | DRG 774 ==
LOC: L&D/OP 12:19 → L&D 13:44 → 3SW 05-11 08:33
PROVIDERS: ADMIT Obstetrics & Gynecology; ATTEND Obstetrics & Gynecology
PROC: 10907ZC Drainage of Amniotic Fluid, Therapeutic from Products of Conception, Via Natural or Artificial Opening (ICD-10-PCS; 2018-05-09)
PROC: 3E033VJ Introduction of Other Hormone into Peripheral Vein, Percutaneous Approach (ICD-10-PCS; 2018-05-09)
PROC: 10E0XZZ Delivery of Products of Conception, External Approach (ICD-10-PCS; principal; 2018-05-10)
PROC: 30233N1 Transfusion of Nonautologous Red Blood Cells into Peripheral Vein, Percutaneous Approach (ICD-10-PCS; 2018-05-10)
DX: O99.89 Other specified diseases and conditions complicating pregnancy, childbirth and the puerperium (principal); O72.1 Other immediate postpartum hemorrhage; N13.2 Hydronephrosis with renal and ureteral calculous obstruction; O69.81X0 Labor and delivery complicated by cord around neck, without compression, not applicable or unspecified; Z3A.38 38 weeks gestation of pregnancy; Z37.0 Single live birth
CPT/HCPCS: 36415; 36430; 51702; 74176; 76770; 80053; 81001; 85027; 86780; 86850; 86900; 86901; 87340; 88307; 90715; 99285; A4216; J0131; J0595; J2001; J2175; J2210; J2550; J3010; J3490; J7050; P9016; S0020

== ENCOUNTER 2018-08-22 16:15 | Inpatient (IN) | payer BC ==
[2018-08-22 17:12] VITALS: BMI 28.6
--- NOTE | 2018-08-23 06:28 | HP ---
SCHEDULED DATE OF SURGERY: 08/23/2018. HISTORY OF PRESENT ILLNESS: Ms. Quarles is a 38-year-old white female, G4, P3, A1, who is approximately 4 to 5 months' . She has a long history of menorrhagia prior to her pregnancies where she will go through a [place] tampon in 1 hour or less for several days. She soils her clothing during the menstrual flow. She has also been reporting an increasing vaginal vault difficulty inserting the tampon due to the vaginal hernia and is desiring a surgical repair. She is done with childbearing and is wanting to seek treatment for her pelvic floor relaxation and menorrhagia issues. PAST SURGICAL HISTORY: None. PAST MEDICAL HISTORY: She has had episodic issues with a kidney stone during her past . SOCIAL HISTORY: Pervious smoker, but has not had smoked in over 10 years. No significant alcohol use. CURRENT MEDICATIONS: None. FAMILY HISTORY: Diabetes mellitus in her father. PHYSICAL EXAMINATION: VITAL SIGNS: Her blood pressure is 120/80, pulse 83, respirations 18, height 5 feet 7 inches, weight 184 with BMI 28. HEENT: Within normal limits. CHEST: Clear to auscultation. HEART: Regular rate and rhythm. S1 and S2 heart sounds. No murmurs, rubs, or gallops. ABDOMEN: Soft, nontender, and nondistended with no palpable masses. No hepatosplenomegaly. PELVIC: External female genitalia were without lesions. She does have a grade 2 cystocele and a grade 3 rectocele noted on vaginal exam. Cervix had no lesions. Pap smear and HPV were negative in October 2017. Her uterus prolapse is grade 2. Adnexal structures, there was no masses or tenderness appreciated. The patient does have any stress incontinence complaints. ASSESSMENT: 1. This is a 38-year-old white female G4, P3, A1 with symptomatic pelvic prolapse of a grade 2 cystocele and a grade 3 and grade 2 uterine prolapse. 2. Menorrhagia. PLAN: Plan is for surgical repair with robotic TLH with bilateral salpingectomy along with anterior and posterior repair. Risks and benefits of the procedure had been discussed in detail and she is set for surgery on 08/23/2018. Job ID: [id number]
[2018-08-23] MEDS ORDERED: Bupivacaine HCl 0.5%/Epinephrine 1:200,000/PF 30 ml Vial ONE (06:37)
[2018-08-23] MEDS ORDERED: Fentanyl 250 MCG/5 ML VIAL ONE (06:39)
[2018-08-23] MEDS ORDERED: Midazolam HCl 2 mg/2 ml Vial ONE (06:39)
[2018-08-23] MEDS ORDERED: Gabapentin 300 MG CAP ONE (06:45)
[2018-08-23] MEDS ORDERED: Famotidine/PF 20 mg/2ml Vial ONE (06:46)
[2018-08-23] MEDS ORDERED: CEFAZOLIN 2 GM/50 ML BAG ONE (06:46)
[2018-08-23] MEDS ORDERED: CeleCOXIB 100 MG CAP ONE (06:46)
[2018-08-23] MEDS ORDERED: Promethazine HCl 25 MG/ML VIAL ONE (07:24)
[2018-08-23] MEDS ORDERED: Lidocaine 1% w/Epinephrine 1:100K 30 ML VIAL ONE ×2 (08:32→09:05)
[2018-08-23] MEDS ORDERED: Meperidine HCl/PF 25 MG/ML VIAL ONE (10:18)
[2018-08-23] MEDS ORDERED: Promethazine HCl 25 MG/ML VIAL IM PRN ×2 (10:21→11:36)
[2018-08-23] MEDS ORDERED: Promethazine HCl 25 MG/ML VIAL SLOW IVP PRN (10:21)
[2018-08-23] MEDS ORDERED: Ketorolac Tromethamine 30 MG/ML VIAL IVP PRN (10:21)
[2018-08-23] MEDS ORDERED: Meperidine HCl/PF 25 MG/ML VIAL SLOW IVP PRN (10:21)
[2018-08-23] MEDS ORDERED: Ketorolac Tromethamine 30 MG/ML VIAL ONE (10:23)
[2018-08-23] MEDS ORDERED: Fentanyl 100 MCG/2 ML VIAL ONE (10:44)
[2018-08-23] MEDS ORDERED: diphenhydrAMINE 25 MG CAP PO PRN (11:36)
[2018-08-23] MEDS ORDERED: Simethicone Chewable 80 MG TAB PO PRN (11:36)
[2018-08-23] MEDS ORDERED: traMADol HCl 50 MG TAB PO PRN (11:36)
[2018-08-23] MEDS ORDERED: Zolpidem Tartrate 5 MG TAB PO PRN (11:36)
[2018-08-23] MEDS ORDERED: Morphine 4 MG/ML VIAL SLOW IVP PRN (11:45)
[2018-08-23] MEDS ORDERED: Morphine 10 MG/ML VIAL SLOW IVP PRN (12:06)
[2018-08-23] MEDS: Ketorolac Tromethamine 30 MG/ML VIAL IVP SCH ×2 (12:19→17:43)
[2018-08-23] MEDS: Acetaminophen 1,000 MG in Premix Bag 1 BAG IVPB SCH ×2 (13:53→18:10)
[2018-08-23] MEDS ORDERED: Metoclopramide HCl 10 MG/2 ML VIAL ONE (16:11)
[2018-08-23] MEDS ORDERED: Dexamethasone 20 MG/5 ML VIAL ONE (16:11)
[2018-08-23] MEDS ORDERED: PROPOFOL 200 MG/20 ML VIAL ONE (16:11)
[2018-08-23] MEDS ORDERED: Glycopyrrolate 0.2 MG/ML 5 ML SYRINGE ONE (16:11)
[2018-08-23] MEDS ORDERED: Lidocaine 1% PF 5 ML VIAL ONE (16:11)
[2018-08-23] MEDS: Lactated Ringer's 1,000 ML IV SCH (18:10)
[2018-08-23] MEDS: Docusate Calcium (SURFAK) 240 MG CAP PO SCH (20:30)
[2018-08-23] MEDS: traMADol HCl 50 MG TAB PO PRN (20:30)
--- NOTE | 2018-08-23 21:43 | OP ---
DATE OF PROCEDURE: 08/23/2018 PREOPERATIVE DIAGNOSES: 1. A 38-year-old white female, G4, P3, A1, with menorrhagia. 2. Symptomatic pelvic organ prolapse with grade 2 cystocele and grade 3 rectocele. POSTOPERATIVE DIAGNOSES: 1. A 38-year-old white female, G4, P3, A1, with menorrhagia. 2. Symptomatic pelvic organ prolapse with grade 2 cystocele and grade 3 rectocele. PROCEDURES PERFORMED: 1. Robotic total laparoscopic hysterectomy with bilateral salpingectomy. 2. Anterior and posterior repair. SALVAGE DETERMINER SURGEON: Mirtha Barksdale MD. ANESTHESIA: General endotracheal. ESTIMATED BLOOD LOSS: 100 mL. COMPLICATIONS: None. COUNTS: Correct x2. ANTIBIOTICS: 2 g Ancef. FINDINGS: 1. Normal-appearing bilateral fallopian tubes and ovaries. Uterus generally normal in appearance. 2. Clear urine present in Crowder catheter postprocedure and bilateral ureteral peristalsis visualized postprocedure. 3. Post-digital rectal exam after posterior repair was normal with no evidence of suture placement within the mucosa. DISPOSITION: Recovery room, stable. DESCRIPTION OF PROCEDURE: The patient previously received informed consent in regard to surgery. She was taken back to the operating room where she received a general endotracheal anesthetic agent without complications. She was then placed in dorsal lithotomy position with the use of Bert stirrups, and prepped and draped in usual sterile fashion. A Crowder catheter was placed during this time. A sidearm speculum was placed in the vagina. Anterior lip of the cervix was grasped with single-tooth tenaculum. The uterus was sounded to 11 cm, and a size 10 cm TUSHAR uterine manipulator with 4.0 cm cervical cup was placed in usual fashion. Tenaculum and speculum were then removed. Attention was then turned to the abdomen where perspective trocar sites were infiltrated with 0.5% Marcaine with epinephrine. A 12-mm supraumbilical incision was made. Veress needle was entered into the peritoneal cavity. The patient's pressure was noted to be less than 5 mm. Abdomen was insufflated to the patient's pressure of 15 with approximately 5 L of carbon dioxide gas. Veress needle was then removed, and a 12-mm trocar was then placed. Laparoscope was then introduced through the trocar sleeve, a proper entry was confirmed. Additional bilateral lower quadrant 8-mm robotic trocars were placed under laparoscopic guidance along with right upper quadrant 11-mm trocar. The patient was placed in deep Trendelenburg position, and the robot was docked in usual fashion. I proceeded to carry out the surgery from the operative consult as my assistants remained at the bedside. The uterus was elevated by my surgical nurse special education teaching assistant. The bilateral fallopian tubes and ovaries were identified. The left fallopian tube was grasped by my special education teaching assistant at the fimbria, and the left fallopian tube was excised with monopolar scissors and bipolar fenestrated cautery under the mesosalpinx. The tube was then removed through the right upper quadrant special education teaching assistant port. The left uterine ovarian ligaments were then coagulated and transected. A 3-0 coagulation transection of the broad ligament hugging close to the uterus was carried down to left round ligament, which reached. It was coagulated and transected, and the anterior lip of the broad ligament was entered. The anterior vesicouterine peritoneum was then incised in layering technique, dissecting the bladder atraumatically past the cervical-vaginal junction. The left uterine vessels were skeletonized, and then they were coagulated ,the internal cervical os reaching the bipolar fenestrated cautery. This was carried down in likewise fashion on the patient's right side of the uterus. Once the bladder had been adequately dissected atraumatically past the cervical-vaginal angle, the anterior colpotomy was made, starting at 12 to 3 and 12 to 9 o'clock position. Posterior colpotomy was then completed from 6 to 3 and 6 to 9 o'clock in likewise fashion. The specimen was delivered in the vaginal vault. The vaginal cuff was then coagulated of any areas of bleeding with bipolar fenestrated cautery to obtain hemostasis. All the pedicle sites again on the pelvic side wall were inspected, and hemostasis was confirmed. Bilateral ureteral peristalsis was visualized along with clear urine draining from the Crowder catheter was noted. The vaginal cuff was then to be closed in vaginal approach due to the anterior and posterior repair component of the case. The robot was undocked. Trocars sleeves were removed. A deep stitch of 0 Vicryl in a [id number] fashion was placed in the fascial defect of the umbilicus. The remainder of the trocar sites were closed with 4-0 Monocryl suture and Dermabond for hemostasis. The patient's legs were then positioned for vaginal surgery in the dorsal lithotomy position. Crowder catheter was then placed, draining clear urine. A standard speculum was then placed in the vagina through the posterior colpotomy, where the edges of the angles had been tagged with [id number] of 0 Vicryl after the vaginal cuff had been run with Allis clamps. Posterior stitch in the 6 o'clock position in the vaginal cuff was also placed with the peritoneal incorporation and tagged. The anterior vaginal mucosa was grasped at the 4 and 8 o'clock position, and the anterior vaginal mucosa was then infiltrated with 1% lidocaine with epinephrine. A vertical incision was made with Metzenbaum scissors in the midline of the anterior vaginal mucosa approximately 1.5 cm from the urethral meatus. The edges of the vaginal cuff were then grasped as we brought this up towards the urethral meatus with Allis clamp. The endopelvic fascia was then dissected both sharply and bluntly dissecting down the cystocele defect. Once the cystocele had been adequately reduced, the endopelvic fascia was then replicated in the midline with horizontal mattress sutures of 2-0 Vicryl. Once the cystocele defect had been reduced and corrected, the anterior vaginal mucosa was then closed with interrupted [id number] of 2-0 Vicryl incorporating some of the endopelvic fascia to rid the space. After this was accomplished, the vaginal cuff was then closed in a horizontal fashion starting at the patient's left angle incorporating the anterior and posterior edges of the vaginal cuff in the peritoneum, and [id number]-fi-[id number] sutures of 0 Vicryl were carried down and the vaginal cuff was closed in its entirety. Good hemostasis was again observed. The posterior repair was then performed. The position of the posterior introitus at the 4 and 8 o'clock was grasped with 2 Allis clamps. The posterior vaginal mucosa was infiltrated with 1% lidocaine with epinephrine. Again, a vertical midline incision of the posterior vaginal mucosa was carried out to the cuff line. The edges of the mucosa were grasped with intervening Allis clamps. This allowed for counter traction and dissection both sharply and bluntly off the rectocele defect. Once the endopelvic fascial lines were developed, the endopelvic fascia was then replicated again in the midline with interrupted 0 Vicryl sutures in mattress-suture fashion reducing the posterior vaginal wall defect. This started most cephalad and worked distally towards the vaginal introitus. Once the rectocele repair was complete, the excess vaginal mucosa of the posterior vagina was trimmed and then these were closed with interrupted [id number]-rg-[id number] stitches of 2-0 Vicryl incorporating again the endopelvic fascia ridding the space. Once hemostasis and completion of the closure of the vaginal mucosa was confirmed, rectal exam then was reperformed digitally to ensure there was no inadvertent suture placement to the rectal mucosa and this was negative for this. A moistened Kerlix laparotomy sponge was placed in the vagina for pressure and added hemostasis. The patient was then awakened from anesthesia and transferred to the recovery room in stable condition. Job ID: [id number]
[2018-08-24] MEDS: Ketorolac Tromethamine 30 MG/ML VIAL IVP SCH ×2 (00:02→05:41)
[2018-08-24] MEDS: Acetaminophen 1,000 MG in Premix Bag 1 BAG IVPB SCH ×3 (00:03→10:40)
[2018-08-24] MEDS: Lactated Ringer's 1,000 ML IV SCH ×2 (05:26→09:02)
[2018-08-24] MEDS: traMADol HCl 50 MG TAB PO PRN (05:42)
[2018-08-24 05:52] LABS: Hemoglobin 13.3 g/dL (12.0-16.0); Mean Corpuscular Hemoglobin 31.7 pg (27.0-31.0); Mean Corpuscular Volume 93.4 fL (78.0-98.0); Mean Platelet Volume 9.2 fL (7.4-10.4); Platelet Count 174 thou/uL (130-400); Red Blood Cell (RBC) Count 4.18 mill/uL (4.20-5.40); White Blood Cell (WBC) Count 10.3 thou/uL (4.8-10.8)
--- NOTE | 2018-08-24 07:57 | PDOC.EVN ---
Event Note - Event Note Event Note: Pain has improved. Tolerating diet. O: HCT 39.1 u/o 2900 ml. T 98.5. R16. 129/78. P90. ABD: soft. trocahar sites clean and dry. A/P post op day 1-robotic tlh with A&P repair. Voiding trial. Advance care. Possible discharge home this pm if progressing well.
[2018-08-24 08:06] VITALS: TEMP 98.3
[2018-08-24] MEDS: Docusate Calcium (SURFAK) 240 MG CAP PO SCH (09:46)
[2018-08-24] MEDS: HYDROcodone/Acetaminophen 5/325 mg Tablet PO PRN ×2 (10:38→14:30)
[2018-08-24 11:58] VITALS: BP 128/83
[2018-08-24] MEDS ORDERED: HYDROcodone/Acetaminophen 5/325 mg Tablet PO PRN (18:00)
--- NOTE | 2018-08-25 13:20 | DIS ---
DATE OF ADMISSION: 08/23/2018 DATE OF DISCHARGE: 08/24/2018 DIAGNOSES: 1. Menorrhagia. 2. Symptomatic cystocele and rectocele. PROCEDURE PERFORMED: Robotic total laparoscopic hysterectomy and bilateral salpingectomy with anterior and posterior repair. SUMMARY OF HOSPITAL COURSE: Ms. Quarles is a 38-year-old white female G4, P3, A1 with symptomatic menorrhagia with dysmenorrhea issues and also pelvic organ prolapse. She was decided to proceed with definitive surgical therapy. She underwent a robotic total laparoscopic hysterectomy and bilateral salpingectomy along with anterior and posterior repair on 08/23/2018. Postoperatively, the patient did well. Her hematocrit was 39% on postop day #1 with stable vital signs. She is ambulating and voiding without difficulty. Post void residual check was noted to be less than 50 mL. Pain control was adequate with addition of [employer] and ibuprofen and she was ready for discharge in the afternoon on postop day #1. Pathology did show evidence of adenomyosis and myometrium. No other abnormalities noted. She has a followup set for 2 and 6 weeks postoperatively. DISCHARGE MEDICATIONS: 1. [employer] 325/5 mg one to two q.4 to 6 hours p.r.n. pain. 2. [id number] ibuprofen 400 mg q.4 hours p.r.n. pain. Job ID: [id number]
[2018-08-28] MEDS ORDERED: Ibuprofen 800 MG TAB PO SCH (09:00)
== END 2018-08-24 15:11 | disposition home or self-care (01) | DRG 743 ==
LOC: SURG A 08-23 06:02 → 3SE 08-23 11:35
PROVIDERS: ADMIT Obstetrics & Gynecology; ATTEND Obstetrics & Gynecology
PROC: 0UT94ZZ Resection of Uterus, Percutaneous Endoscopic Approach (ICD-10-PCS; principal; 2018-08-23)
PROC: 0JQC0ZZ Repair Pelvic Region Subcutaneous Tissue and Fascia, Open Approach (ICD-10-PCS; 2018-08-23)
PROC: 0JQC0ZZ Repair Pelvic Region Subcutaneous Tissue and Fascia, Open Approach (ICD-10-PCS; 2018-08-23)
PROC: 0UT74ZZ Resection of Bilateral Fallopian Tubes, Percutaneous Endoscopic Approach (ICD-10-PCS; 2018-08-23)
PROC: 8E0W4CZ Robotic Assisted Procedure of Trunk Region, Percutaneous Endoscopic Approach (ICD-10-PCS; 2018-08-23)
DX: N92.0 Excessive and frequent menstruation with regular cycle (principal); N81.10 Cystocele, unspecified; N81.6 Rectocele; N80.0 Endometriosis of uterus; Z87.891 Personal history of nicotine dependence
CPT/HCPCS: 36415; 84703; 85027; 86850; 86900; 86901; 88307; J0131; J0670; J1100; J1885; J2001; J2175; J2250; J2270; J2550; J2704; J2765; J3010; S0028

== ENCOUNTER 2018-08-22 16:41 | Outpatient (CLI) | payer BC ==
[2018-08-22 17:43] LABS: Hemoglobin 14.8 g/dL (12.0-16.0); Mean Corpuscular HGB CONC 33.2 g/dL (32.0-36.0); Mean Corpuscular Hemoglobin 30.8 pg (27.0-31.0); Mean Corpuscular Volume 92.6 fL (78.0-98.0); Mean Platelet Volume 9.1 fL (7.4-10.4); Platelet Count 200 thou/uL (130-400); RBC Distribution Width 12.1 % (11.5-14.5); Red Blood Cell (RBC) Count 4.82 mill/uL (4.20-5.40); White Blood Cell (WBC) Count 7.3 thou/uL (4.8-10.8)
[2018-08-22 17:56] LABS: BHCG - Serum Negative (NEGATIVE); Pregs Control Background? CLEAR/WHITE (CLR/WHITE); Pregs Control Bar Appear? YES (CONTROL BAR)
== END 2018-08-22 16:42 | disposition home or self-care (01) ==
LOC: LABBT 16:41
PROVIDERS: ATTEND Obstetrics & Gynecology
DX: Z01.812 Encounter for preprocedural laboratory examination (principal); N20.0 Calculus of kidney
CPT/HCPCS: 84703; 85027; 86850; 86900; 86901